=== PATIENT | female | born 1975 | race Caucasian/White ===

== ENCOUNTER 2021-05-13 14:22 | Emergency (ER) | payer OTHER ==
[2021-05-13 15:54] LABS: HEMOGLOBIN 15.4 gm/dl (12.3-15.3); RED BLOOD COUNT 4.97 M/UL (4.00-5.10); WHITE BLOOD COUNT 4.5 K/UL (4.5-11.0)
[2021-05-13 16:19] LABS: BUN/CREATININE RATIO 11 (0-10)
[2021-05-13] MEDS ORDERED: ZOFRAN ODT 4 MG4 MG SL (16:55)
[2021-05-13] MEDS ORDERED: K-DUR TAB 20 M20 MEQ PO (16:55)
== END 2021-05-13 18:55 | disposition home or self-care (01) ==
LOC: ER1 14:22
PROVIDERS: Emergency Medicine
DX: U07.1 COVID-19 (principal); E87.6 Hypokalemia; I10 Essential (primary) hypertension
CPT/HCPCS: 71045; 80053; 83605; 83690; 83735; 84703; 85025; 86140; 96374; 96375; 99283; J1885; J2405; J7030

== ENCOUNTER → 2021-09-10 | Outpatient (CLI) | payer OTHER ==
[~2021-09-10] MED LIST: K-DUR TAB 20 M20 MEQ PO; ZOFRAN ODT 4 MG4 MG SL
== END ==
LOC: KOH-I 08:00
DX: R74.8 Abnormal levels of other serum enzymes (principal); K76.0 Fatty (change of) liver, not elsewhere classified
CPT/HCPCS: 76705

== ENCOUNTER → 2022-03-12 | Outpatient (CLI) | payer OTHER | LOC: KOH-I 16:17 | DX: R07.9 Chest pain, unspecified (principal) | CPT/HCPCS: 71046 ==

== ENCOUNTER → 2022-03-27 | Outpatient (CLI) | payer OTHER | LOC: KOH-I 16:22 | DX: M54.50 Low back pain, unspecified (principal) | CPT/HCPCS: 72100 ==

== ENCOUNTER → 2022-04-24 | Outpatient (CLI) | payer OTHER | LOC: HEART 5 09:29 | DX: R07.9 Chest pain, unspecified (principal); R00.2 Palpitations; R42 Dizziness and giddiness; I08.1 Rheumatic disorders of both mitral and tricuspid valves | CPT/HCPCS: 93306 ==

== ENCOUNTER 2022-06-22 09:06 | Emergency (ER) | payer OTHER ==
[2022-06-22] MEDS ORDERED: CLEOCIN HCL150 MG PO (09:37)
== END 2022-06-22 09:45 | disposition home or self-care (01) ==
LOC: ER1 09:06
DX: L02.213 Cutaneous abscess of chest wall (principal)
CPT/HCPCS: 99283